=== PATIENT | male | born 1990 | race Hispanic/Latino ===

== ENCOUNTER 2017-08-24 10:36 | Emergency (ER) | payer OTHER ==
[~2017-08-24] VITALS: Ht 170.2 cm; Wt 110.9 kg
[2017-08-24] MEDS ORDERED: KEPPRA750 MG PO ×2 (11:02→11:03)
[2017-08-24] MEDS ORDERED: ATENOLOL25 MG PO (11:03)
[2017-08-24] MEDS ORDERED: DEPAKOTE250 MG PO (11:04)
[2017-08-24] MEDS ORDERED: TIROSINT50 MCG PO (11:04)
[2017-08-24] MEDS ORDERED: AMLODIPINE BESY10 MG PO (11:04)
[2017-08-24] MEDS ORDERED: PROZAC20 MG PO (11:05)
[2017-08-24] MEDS ORDERED: LITHIUM CARBON300 M1 PO (11:06)
[2017-08-24] MEDS ORDERED: RISPERDAL1 MG PO (11:07)
[2017-08-24] MEDS ORDERED: PROAIR RESPICL90 MCG IH (11:09)
[2017-08-24] MEDS ORDERED: COLACE100 MG PO (11:09)
[2017-08-24] MEDS ORDERED: TYLENOL EXTRA500 MG PO (11:11)
[2017-08-24] MEDS ORDERED: PEPTO BISMOL240 ML PO (11:11)
[2017-08-24] MEDS ORDERED: ZYRTEC10 M2 PO (11:12)
[2017-08-24 12:52] VITALS: BP 110/67
[2017-08-25 08:24] LABS: TREPONEMA ANTIBODY NEGATIVE (NEGATIVE)
[2017-08-26 11:54] LABS: CHLAMYDIA TRACHOMATIS NEGATIVE; NEISSERIA GONORRHOEAE NEGATIVE
== END 2017-08-24 13:14 ==
LOC: EME 10:36
PROVIDERS: Emergency Medicine
DX: T76.21XA Adult sexual abuse, suspected, initial encounter (principal); Y92.149 Unspecified place in prison as the place of occurrence of the external cause; Y07.9 Unspecified perpetrator of maltreatment and neglect; I10 Essential (primary) hypertension; G40.909 Epilepsy, unspecified, not intractable, without status epilepticus; Z87.891 Personal history of nicotine dependence
CPT/HCPCS: 86780; 87491; 87591; 99281; 99284